=== PATIENT | female | born 1950 | race Hispanic/Latino ===

== ENCOUNTER 2018-03-10 15:51 | Emergency (ER) | payer MEDICARE ==
[~2018-03-10] VITALS: Ht 154.9 cm; Wt 80.3 kg
--- OUTSIDE RECORDS SUMMARY | 2018-03-10 15:53 | XMS REPORT | Clinical Summary ---
Author Author [facility] Address Unknown Phone Unavailable Care Team Providers Care Population Health Coach Name Role Phone Asked, Pcp PCP Unavailable Allergies Not on File Current Medications Not on file Active Problems Not on file Encounters Date Type Specialty Care Team Description 02/05/2018 [facility] Radiation Oncology Ruy Reynolds MD Encounter 12/21/2017 [facility] Radiation Oncology Ruy Reynolds MD Encounter 11/20/2017 [facility] Radiation Oncology Ruy Reynolds MD - Encounter 11/21/2017 after 03/09/2017 Social History Tobacco Use Types Packs/Day Years Used Date Never Assessed Sex Assigned at Date Recorded Not on file Last Filed Vital Signs Not on file Plan of Treatment Health Maintenance Due Date Last Done Comments PAP SMEAR 1973 COLONOSCOPY 2002 MAMMOGRAM 2002 ZOSTER VACCINE 2012 PNEUMOCOCCAL-13 2017 INFLUENZA VACCINE 06/20/2018 PNEUMOCOCCAL Completed 10/05/2017 POLYSACCHARIDE VACCINE AGE 65 AND OVER Results Not on fileafter 03/09/2017 Insurance Payer Benefit Subscriber ID Type Phone Address Plan / Group [facility] ADVANTAGE [facility] xxxxxxxxxxx O ADVANTAGE [facility] Home: [address] [place] [id number]
[2018-03-10] MEDS ORDERED: MORPHINE SULFATE 2 MG/ML SYR IV STA (17:51)
--- NOTE | 2018-03-10 18:16 | Diagnostic Imaging Report ---
EXAMINATION: CHEST SINGLE (PORTABLE) INDICATION: Discomfort on the gallbladder. Abdominal pain. COMPARISON: None FINDINGS: AP view TUBES and LINES: Left-sided portacatheter with tip at mid SVC. LUNGS: Lungs are not well inflated. Perihilar vascular crowding. Lungs are clear. There is no evidence of pneumonia or pulmonary edema. PLEURA: No pleural effusion or pneumothorax. HEART AND MEDIASTINUM: The cardiomediastinal silhouette is unremarkable. BONES AND SOFT TISSUES: No acute osseous lesion. Soft tissues are unremarkable. Left axillary surgical clips. UPPER ABDOMEN: No free air under the diaphragm. IMPRESSION: Hypoinflated lungs with perihilar vascular crowding. No acute thoracic abnormality. Signed by: Dr. King Mclean M.D. on 03/10/2018 6:13 PM
[2018-03-10 18:24] LABS: BASOPHILS % 0.2 % (0.0-1.0); EOSINOPHILS % 0.4 % (0.0-6.0); HEMATOCRIT 32.1 % (34.2-44.1); HEMOGLOBIN 10.8 g/dL (12.0-16.0); LYMPHOCYTES # (AUTO) 0.4 (1.0-3.2); LYMPHOCYTES % 6.9 % (18.0-39.1); MEAN CORPUSCULAR HEMOGLOBIN 33.9 pg (28-32); MEAN CORPUSCULAR HGB CONC 33.6 g/dL (31-35); MEAN CORPUSCULAR VOLUME 100.6 fL (81-99); MONOCYTES # (AUTO) 0.5 (0.2-0.8); MONOCYTES % 7.9 % (4.4-11.3); NEUTROPHILS # (AUTO) 4.8 (2.1-6.9); NEUTROPHILS % 84.1 % (38.7-80.0); PLATELET COUNT 146 x10e3/uL (140-360); RED BLOOD COUNT 3.19 x10e6/uL (3.6-5.1); RED CELL DISTRIBUTION WIDTH 13.4 % (11.7-14.4)
[2018-03-10 18:30] LABS: BILIRUBIN,URINE NEGATIVE (NEGATIVE); CLARITY,URINE CLEAR (CLEAR); COLOR,URINE YELLOW (YELLOW); KETONES,URINE NEGATIVE (NEGATIVE); LEUKOCYTE ESTERASE ,URINE NEGATIVE (NEGATIVE); NITRITE,URINE NEGATIVE (NEGATIVE); PROTEIN,URINE DIPSTICK NEGATIVE (NEGATIVE); URINE UROBILINOGEN 0.2 mg/dL (0.2 - 1)
[2018-03-10 18:48] LABS: ALANINE AMINOTRANSFERASE 17 IU/L (0-55); ALBUMIN 3.3 g/dL (3.5-5.0); ALBUMIN/GLOBULIN RATIO 0.9 (0.8-2.0); ALKALINE PHOSPHATASE 91 IU/L (40-150); ANION GAP 11.9 mmol/L (8-16); BLOOD UREA NITROGEN 11 mg/dL (7-26); BUN/CREATININE RATIO 19 (6-25); CALCIUM 9.6 mg/dL (8.4-10.2); CARBON DIOXIDE 31 mmol/L (22-29); CHLORIDE 99 mmol/L (98-107); CREATINE KINASE 19 IU/L (29-168); CREATININE, SERUM 0.59 mg/dL (0.57-1.11); EST GLOMERULAR FILTRATION RATE > 60 ML/MIN (60-); GLUCOSE 130 mg/dL (74-118); POTASSIUM 3.9 mmol/L (3.5-5.1); SODIUM 138 mmol/L (136-145)
[2018-03-10 18:49] LABS: LIPASE < 4 U/L (8-78)
[2018-03-10 18:49] LABS: EPITHELIAL CELLS,URINE FEW /LPF; WBC,URINE (MAN) 0-5 /HPF (0-5)
--- NOTE | 2018-03-10 18:58 | Diagnostic Imaging Report ---
EXAM: Right Upper Quadrant Ultrasound INDICATION: Abdominal pain. Discomfort around the gallbladder. COMPARISON: None. TECHNIQUE: Transverse and longitudinal images of the right upper abdomen were obtained. FINDINGS: Liver: Size: 14.5 cm in the right midclavicular line, normal Appearance: Normal increased echogenicity, smooth contour Mass: 1.2 x 0.7 x 1.4 cm cystic lesion abutting the anterior/superior margin of the left hepatic lobe. Gallbladder: Stones/Sludge: None Wall: 0.3 cm Appearance: No pericholecystic fluid or hydrops. Contracted. Sonographic Mcneill's Sign: Negative Bile Ducts: Intrahepatic Ducts: No dilatation Extrahepatic Ducts: Common bile duct measures 0.3 cm, no dilatation Pancreas: Visualized portions of the pancreatic head, neck and proximal body are normal. Right Kidney: Size: 11.0 x 4.8 x 4.9 cm Echogenicity: Normal Parenchymal thickness: Normal Collecting system: No hydronephrosis Stones: None Cyst/Mass: None Vessels: Aorta: Visualized portions are normal Inferior Vena Cava: Visualized portions are normal Main Portal Vein: 1.1 cm, normal size with hepatopetal flow. Free Fluid: No ascites or pleural effusion IMPRESSION: 1. Diffuse hepatic steatosis without focal mass. 2. 1.4 cm left hepatic lobe cysts. 3. Contracted gallbladder. Signed by: Dr. King Mclean M.D. on 03/10/2018 6:54 PM
[2018-03-10 22:44] VITALS: BP 95/53
== END 2018-03-10 22:46 | disposition home or self-care (01) ==
LOC: ER 15:51
DX: R10.11 Right upper quadrant pain (principal); E07.9 Disorder of thyroid, unspecified; Z85.3 Personal history of malignant neoplasm of breast; Z85.43 Personal history of malignant neoplasm of ovary; Z85.41 Personal history of malignant neoplasm of cervix uteri
CPT/HCPCS: 36415; 71045; 76705; 80053; 81001; 82550; 82553; 83690; 84484; 85025; 85379; 99283; J2270